=== PATIENT | male | born 1940 | race Caucasian/White ===

== ENCOUNTER → 2016-12-20 | Day surgery (SDC) | payer MEDICARE ==
[~2016-12-20] VITALS: Ht 172.7 cm; Wt 62.8 kg
[~2016-12-20] MED LIST: ACETAMINOPHEN 1000 MG/100 ML VIAL IV ONE; ACETAMINOPHEN 1000 MG/100 ML VIAL IV SCH; ATEN25TA PO; BUPIVACAINE/EPINEPHRINE 0.25% PF 30 ML VIAL INFIL ONE; CHLORHEXIDINE GLUCONATE 2 % 1 PACK (2 CLOTHS) TOPICAL PRN; DEXAMETHASONE SOD PHOS 4 MG/ML VIAL ONE; DO NOT ADM ANY ANTICOAGULANT DRUGS PRN; FAMOTIDINE 20 MG/2 ML VIAL ONE; FISH1200 PO; FLUT50SP EACH NARE; INSULIN HUMAN REGULAR 1,000 UNITS/10 ML VIAL SQ PRN; LACTATED RINGER'S 1000 ML INJ 1,000 ML IV ONE; LACTATED RINGER'S 1000 ML INJ 1,000 ML ONE; LACTATED RINGER'S 1000 ML IV PRN; LISI-515 PO; METOPROLOL TARTRATE 25 MG TAB PO PRN; MIDAZOLAM HCL 2 MG/2 ML VIAL ONE; MORPHINE SULFATE 4 MG/ML INJ IV PRN; MULT1TAB93 PO; NEOSTIGMINE 3 MG/3 ML SYR IV ONE; ONDANSETRON HCL 4 MG/2 ML VIAL IV PRN; ONDANSETRON HCL 4 MG/2 ML VIAL IV PUSH ONE; OXYGENDME NAS.CANULA; POVIDONE IODINE 5% (ANTISEPSIS KIT) 4 APPLICATIONS EACH NARE PRN; PRAV20TA2 PO; PROPOFOL 200 MG/20 ML AMP IV ONE; SODIUM CHLORID 0.9% 500 ML IV PRN; SODIUM CHLORIDE 0.9% FLUSH 10 ML FLUSH IV FLUSH PRN; SODIUM CHLORIDE 0.9% FLUSH 10 ML FLUSH IV FLUSH SCH; SYMB80AE INH; UMEC1INH INH; VENTAER INH; ceFAZolin 2 GM PREMIX 50 ML IV SCH; ceFAZolin 2 GM PREMIX 50 ML ONE; ePHEDrine/NS 25 MG/5 ML SYR IV ONE; fentaNYL CITRATE 250 MCG/5 ML AMP ONE; oxyCODONE/ACETAMINOPHEN 5 MG/325 MG TAB PO PRN
[2016-12-20 12:37] VITALS: BP 130/79; PULSE 61; RESP 18; TEMP 97.3; O2SAT 99
--- NOTE | 2016-12-20 15:31 | PD.OP ---
cc: David Stinson MD Operative Report Date of Surgery: Dec 20, 2016 Preoperative Diagnosis: (1) Left inguinal hernia Postoperative Diagnosis: (1) Left inguinal hernia Procedure: Left inguinal hernia repair with mesh Anesthesia: Gen Surgeon: David Stinson Transit Clerk(s): Leonard MCKINNON Operation and Findings: EBL: 5 cc Operative findings: Indirect hernia with thin sac. Small direct hernia. Procedure in detail: The patient was taken to the operating room and placed in the supine position. Gen. Anesthesia was induced. The lower abdomen and groin was prepped and draped in usual sterile fashion. Appropriate preoperative antibiotics were administered. Lidocaine with epinephrine was injected in the skin and subcutaneous tissue in the left inguinal area and an inguinal incision was made. Dissection was carried out through subcutaneous tissue with electrocautery. Demar's fascia was divided with electrocautery and the external oblique was encountered. A rosalia along the direction of fibers was created with a scalpel and extended with Metzenbaum scissors taking care not to injure underlying nerves. The external oblique flaps were created. The spermatic cord and hernia sac were from underlying tissues and the pubis and isolated with a [place] drain. Cremasteric muscle fibers were divided as necessary. At this point the spermatic cord structures were examined and a moderate sized indirect hernia with a thin sac was encountered. The hernia sac was from cord structures. The spermatic vessels and vas deferens were carefully preserved. The hernia sac was from surrounding structures all the way down to the internal ring. The hernia sac was inadvertently opened and colon was visible. Easily reduced and after closure of the sac with 3-0 Vicryl it was then allowed to reenter the abdominal cavity. A piece of lightweight polypropylene mesh was then cut to size. This was secured using simple interrupted 0 Ethibond suture to the pubic tubercle and along the inguinal ligament past the entrance of the spermatic cord into the internal ring. Simple interrupted 0 Ethibond sutures were used to fasten the superior aspect of the mesh medially and superiorly along the conjoined tendon and internal oblique fibers taking care to avoid nearby nerves. The internal ring was re-created by reapproximating the mesh with interrupted suture taking care to avoid strangulation of the cord. The lateral flaps of mesh were tucked under the external oblique fascia. There was appropriate hemostasis in the operative field. The external ring was re-created by closing the external oblique fascia with running 3-0 Vicryl suture. Demar's was closed with interrupted 3-0 Vicryl sutures. Skin closed with running subcuticular 4-0 Monocryl as well as Dermabond. The patient tolerated procedure well and was taken to postop in stable condition. David Stinson MD Dec 20, 2016 15:31
[2016-12-20 16:10] VITALS: TEMP 97.7
[2016-12-20 17:15] VITALS: BP 165/80; PULSE 60; RESP 18; O2SAT 98
== END | disposition home or self-care (01) ==
LOC: HSDC 10:57
PROVIDERS: ATTEND Surgery
DX: K40.90 Unilateral inguinal hernia, without obstruction or gangrene, not specified as recurrent (principal); I12.9 Hypertensive chronic kidney disease with stage 1 through stage 4 chronic kidney disease, or unspecified chronic kidney disease; N18.3 Chronic kidney disease, stage 3 (moderate); E78.5 Hyperlipidemia, unspecified; I77.1 Stricture of artery; J44.9 Chronic obstructive pulmonary disease, unspecified; I45.10 Unspecified right bundle-branch block; I70.0 Atherosclerosis of aorta; R09.89 Other specified symptoms and signs involving the circulatory and respiratory systems; I48.91 Unspecified atrial fibrillation; J30.9 Allergic rhinitis, unspecified; E04.2 Nontoxic multinodular goiter; N40.0 Benign prostatic hyperplasia without lower urinary tract symptoms; F10.21 Alcohol dependence, in remission; F17.200 Nicotine dependence, unspecified, uncomplicated
CPT/HCPCS: 49505; C1781; J0131; J0690; J1100; J2250; J2405; J2710; J3010; J7120

== ENCOUNTER → 2017-08-03 | Day surgery (SDC) | payer MEDICARE ==
[~2017-08-03] VITALS: Ht 172.7 cm; Wt 67.3 kg
[~2017-08-03] MED LIST changes: -ACETAMINOPHEN 1000 MG/100 ML VIAL IV ONE; -ACETAMINOPHEN 1000 MG/100 ML VIAL IV SCH; -BUPIVACAINE/EPINEPHRINE 0.25% PF 30 ML VIAL INFIL ONE; -DEXAMETHASONE SOD PHOS 4 MG/ML VIAL ONE; -DO NOT ADM ANY ANTICOAGULANT DRUGS PRN; -FAMOTIDINE 20 MG/2 ML VIAL ONE; +FLUT1AER6 INH; -INSULIN HUMAN REGULAR 1,000 UNITS/10 ML VIAL SQ PRN; -LACTATED RINGER'S 1000 ML INJ 1,000 ML IV ONE; -LACTATED RINGER'S 1000 ML INJ 1,000 ML ONE; +LIDOCAINE HCL 1% PF 30 ML VIAL ONE; +LIDOCAINE HCL 2% JELLY 5 ML SYRINGE TOPICAL ONE; -MIDAZOLAM HCL 2 MG/2 ML VIAL ONE; -MORPHINE SULFATE 4 MG/ML INJ IV PRN; +MULT1TAB PO; -NEOSTIGMINE 3 MG/3 ML SYR IV ONE; -ONDANSETRON HCL 4 MG/2 ML VIAL IV PRN; -ONDANSETRON HCL 4 MG/2 ML VIAL IV PUSH ONE; -OXYGENDME NAS.CANULA; +PROPARACAINE HCL 0.5% OPHT SOLN 15 ML BTL LEFT EYE ONE; -PROPOFOL 200 MG/20 ML AMP IV ONE; -SODIUM CHLORIDE 0.9% FLUSH 10 ML FLUSH IV FLUSH PRN; -SODIUM CHLORIDE 0.9% FLUSH 10 ML FLUSH IV FLUSH SCH; +TOBRAMYCIN/DEXAMETHASONE OPTH OINT 3.5 GM TUBE ONE; -ceFAZolin 2 GM PREMIX 50 ML IV SCH; -ceFAZolin 2 GM PREMIX 50 ML ONE; -ePHEDrine/NS 25 MG/5 ML SYR IV ONE; -fentaNYL CITRATE 250 MCG/5 ML AMP ONE; -oxyCODONE/ACETAMINOPHEN 5 MG/325 MG TAB PO PRN
[2017-08-03] MEDS: CYCLOPENTOLATE HCL 1% OPHT SOLN 2 ML BTL LEFT EYE SCH ×4 (08:10→08:25)
[2017-08-03] MEDS: PHENYLEPHRINE HCL 10% OPTH SOLN 5 ML BTL LEFT EYE SCH ×4 (08:10→08:25)
[2017-08-03] MEDS: TROPICAMIDE 1% OPHT SOLN 15 ML BTL LEFT EYE SCH ×4 (08:10→08:25)
[2017-08-03] MEDS: FLURBIPROFEN 0.03% OPHT SOLN 2.5 ML BTL LEFT EYE SCH ×4 (08:10→08:25)
[2017-08-03 09:35] VITALS: TEMP 97.6
[2017-08-03 09:55] VITALS: BP 168/86; PULSE 54; RESP 16; O2SAT 100
--- NOTE | 2017-08-05 20:21 | MP ---
cc: MNAUEL CONDE [facility] #[id number] DATE OF SURGERY: 08/03/2017 PREOPERATIVE DIAGNOSIS: Visually significant cataract, left eye. POSTOPERATIVE DIAGNOSIS: Visually significant cataract, left eye. OPERATION: Phacoemulsification with posterior chamber lens implantation, left eye. SURGEON: Manuel Conde MD ANESTHESIA: Topical with MAC. COMPLICATIONS: None. PROCEDURE: After informed consent was obtained, the patient was brought into the operative suite and placed on appropriate monitors by the Anesthesia Service. The patient had been given dilating drops and topical lidocaine gel in the holding area. The patient's operative eye was then prepped and draped in the usual sterile fashion. A wire lid speculum was placed. Further 2% lidocaine was then dropped on the cornea prior to beginning the procedure. A paracentesis incision was made in the peripheral cornea with a 1 mm colleen keratome. The anterior chamber was filled with viscoelastic. The anterior chamber was then entered through a stepped, clear corneal incision using a sharp 3 mm colleen keratome. A circular tear capsulorrhexis was then made with a bent needle cystitome. Following hydrodissection of the lens nucleus with balance saline, phaco-emulsification of the nucleus was performed using a modified chopping technique. The remaining cortex was removed with irrigation/aspiration. The prior two procedures were both performed using the handpieces of the [employer] phaco unit. The capsular bag was then filled with viscoelastic. The intraocular lens was then injected into the capsular bag and positioned. The type of intraocular lens and its power can be found elsewhere in this chart. The remaining viscoelastic was then removed from the anterior chamber with the IA handpiece. The anterior chamber was reformed with balanced saline. The wound was then closed securely with stromal hydration. It was found to be watertight to an intraocular pressure of at least 30 mmHg by palpation. A small amount of balanced salt solution was then removed through the paracentesis site and the intraocular pressure at the end of the case was approximately 20 by palpation. All drapes were then removed. TobraDex ointment was then placed in the eye, which was closed beneath a semi-pressure patch dressing. The patient tolerated this procedure well and left the operating room awake and alert. The patient is to follow-up in my office in the morning. MD ASHANTI Carey /9:52 AM /8:16 PM
== END | disposition home or self-care (01) ==
LOC: PHSDC 07:11
PROVIDERS: ATTEND Optometrist Occupational Vision
DX: H26.9 Unspecified cataract (principal)
CPT/HCPCS: 00142; 66984; J7040; V2632

== ENCOUNTER → 2017-09-07 | Day surgery (SDC) | payer MEDICARE ==
[~2017-09-07] VITALS: Ht 172.7 cm; Wt 66.0 kg
[~2017-09-07] MED LIST changes: +CYCLOPENTOLATE HCL 1% OPHT SOLN 2 ML BTL ONE; +EPINEPHrine HCL PF/SF (1:1000) 1 MG/ML AMP I-OCULAR ONE; +FERR325T18 PO; +FLURBIPROFEN 0.03% OPHT SOLN 2.5 ML BTL ONE; +LIDOCAINE HCL 2% JELLY 5 ML SYRINGE ONE; -MULT1TAB93 PO; +PHENYLEPHRINE HCL 10% OPTH SOLN 5 ML BTL ONE; -PROPARACAINE HCL 0.5% OPHT SOLN 15 ML BTL LEFT EYE ONE; +PROPARACAINE HCL 0.5% OPHT SOLN 15 ML BTL ONE; +PROPARACAINE HCL 0.5% OPHT SOLN 15 ML BTL RIGHT EYE ONE; +TROPICAMIDE 1% OPHT SOLN 15 ML BTL ONE; +VITA10002 PO; +ZINC50TA2 PO
[2017-09-07] MEDS: CYCLOPENTOLATE HCL 1% OPHT SOLN 2 ML BTL RIGHT EYE SCH ×4 (06:50→07:05)
[2017-09-07] MEDS: FLURBIPROFEN 0.03% OPHT SOLN 2.5 ML BTL RIGHT EYE SCH ×4 (06:50→07:05)
[2017-09-07] MEDS: TROPICAMIDE 1% OPHT SOLN 15 ML BTL RIGHT EYE SCH ×4 (06:50→07:05)
[2017-09-07] MEDS: PHENYLEPHRINE HCL 10% OPTH SOLN 5 ML BTL RIGHT EYE SCH ×4 (06:50→07:05)
[2017-09-07 08:19] VITALS: TEMP 97.8
[2017-09-07 08:35] VITALS: BP 186/91; PULSE 62; RESP 16; O2SAT 97
--- NOTE | 2017-09-07 10:40 | MP ---
cc: Manuel Pugh MD DATE OF OPERATION: 09/07/2017 [facility] # [id number] PREOPERATIVE DIAGNOSIS: Visually significant cataract, right eye. POSTOPERATIVE DIAGNOSIS: Visually significant cataract, right eye. OPERATION: Phacoemulsification with posterior chamber lens implantation, right eye. SURGEON: Manuel Pugh MD ANESTHESIA: Topical with MAC. COMPLICATIONS: None. PROCEDURE: After informed consent was obtained, the patient was brought into the operative suite and placed on appropriate monitors by the Anesthesia Service. The patient had been given dilating drops and topical lidocaine gel in the holding area. The patient's operative eye was then prepped and draped in the usual sterile fashion. A wire lid speculum was placed. Further 2% lidocaine was then dropped on the cornea prior to beginning the procedure. A paracentesis incision was made in the peripheral cornea with a 1 mm colleen keratome. The anterior chamber was filled with viscoelastic. The anterior chamber was then entered through a stepped, clear corneal incision using a sharp 3 mm colleen keratome. A circular tear capsulorrhexis was then made with a bent needle cystitome. Following hydrodissection of the lens nucleus with balance saline, phaco-emulsification of the nucleus was performed using a modified chopping technique. The remaining cortex was removed with irrigation/aspiration. The prior two procedures were both performed using the handpieces of the [employer] phaco unit. The capsular bag was then filled with viscoelastic. The intraocular lens was then injected into the capsular bag and positioned. The type of intraocular lens and its power can be found elsewhere in this chart. The remaining viscoelastic was then removed from the anterior chamber with the IA handpiece. The anterior chamber was reformed with balanced saline. The wound was then closed securely with stromal hydration. It was found to be watertight to an intraocular pressure of at least 30 mmHg by palpation. A small amount of balanced salt solution was then removed through the paracentesis site and the intraocular pressure at the end of the case was approximately 20 by palpation. All drapes were then removed. TobraDex ointment was then placed in the eye, which was closed beneath a semi-pressure patch dressing. The patient tolerated this procedure well and left the operating room awake and alert. The patient is to follow-up in my office in the morning. MD CHARAN Carey , 10:25 AM , 10:38 AM
== END | disposition home or self-care (01) ==
LOC: PHSDC 06:08
PROVIDERS: ATTEND Optometrist Occupational Vision
DX: H25.811 Combined forms of age-related cataract, right eye (principal)
CPT/HCPCS: 00142; 66984; J0171; J7040; V2632